=== PATIENT | male | born 1960 | race Caucasian/White ===

== ENCOUNTER 2017-08-04 07:43 | Day surgery (SDC) | payer OTHER ==
--- NOTE | 2017-07-26 10:33 | EKG REPORT ---
SEVERITY:- ABNORMAL ECG - SINUS RHYTHM PROBABLE LEFT ATRIAL ABNORMALITY NONSPECIFIC T ABNORMALITIES, INFERIOR LEADS : Confirmed by: Eva Deng 26-Jul-2017 10:33:06
[2017-08-04] MEDS ORDERED: OXYMETAZOLINE HCL 0.05% NASAL SPRAY 15 ML BOTTLE ONE ×2 (08:14→10:00)
[2017-08-04] MEDS ORDERED: BUPIVACAINE HCL 0.5%-EPI 1:200000 INJ/PF 30 ML VIAL ONE (08:14)
[2017-08-04] MEDS ORDERED: BACITRACIN ZINC OINTMENT 15 GM ONE (08:14)
[2017-08-04] MEDS ORDERED: MIDAZOLAM 2 MG/2 ML INJ ONE (08:28)
[2017-08-04] MEDS ORDERED: FENTANYL CITRATE INJ/PF 100 MCG/2 ML AMPUL ONE ×2 (08:28→12:42)
[2017-08-04] MEDS ORDERED: DEXAMETHASONE SOD PHOSPHATE INJ 4 MG/1 ML VIAL ONE (08:28)
[2017-08-04] MEDS ORDERED: HYDROMORPHONE HCL INJ/PF 2 MG/ML AMPULE ONE (08:29)
[2017-08-04] MEDS ORDERED: ROCURONIUM BROMIDE INJ 50 MG/5 ML VIAL IV ONE (08:29)
[2017-08-04] MEDS ORDERED: ONDANSETRON HCL INJ/PF 4 MG/2 ML SDV ONE (08:29)
[2017-08-04] MEDS ORDERED: PROPOFOL INJ 200 MG/20 ML VIAL IV ONE (08:29)
[2017-08-04] MEDS ORDERED: SUCCINYLCHOLINE CHLORIDE INJ 200 MG/10 ML VIAL ONE (08:29)
[2017-08-04] MEDS ORDERED: CEFAZOLIN 2 GM/D5W RTU 2 GM/50 ML RTUPB IV PRN (08:41)
[2017-08-04] MEDS ORDERED: EPHEDRINE SULFATE INJ 50 MG/1 ML AMPULE ONE (09:22)
[2017-08-04] MEDS: LIDOCAINE 1%/EPINEPHRINE INJ 20 ML VIAL ONE ×2 (09:26→09:56)
[2017-08-04] MEDS ORDERED: MINERAL OIL (STERILE) 10 ML VIAL ONE (10:18)
[2017-08-04] MEDS ORDERED: WATER FOR INJECTION,STERILE 10 ML SDV ONE (10:57)
[2017-08-04] MEDS ORDERED: PROMETHAZINE HCL INJ 25 MG/1 ML VIAL ONE ×2 (12:43→14:19)
--- NOTE | 2017-08-10 15:04 | SURGICARE OPERATIVE REPORT E ---
[facility] NAME: BLAYNE BERNSTEIN DATE OF SURGERY: 08/04/2017 ROOM: PREOPERATIVE DIAGNOSES: 1. CHRONIC RHINOSINUSITIS. 2. NASOSEPTAL DEVIATION, ACQUIRED. 3. CHRONIC NASAL DYSPNEA. 4. BILATERAL INFERIOR TURBINATE HYPERTROPHY. POSTOPERATIVE DIAGNOSES: 1. CHRONIC RHINOSINUSITIS. 2. NASOSEPTAL DEVIATION, ACQUIRED. 3. CHRONIC NASAL DYSPNEA. 4. BILATERAL INFERIOR TURBINATE HYPERTROPHY. OPERATIONS: 1. Right image guidance functional endoscopic sinus surgery with rigid surgical transnasal endoscopy. 2. Right maxillary antrostomy. 3. Right anterior ethmoidectomy. 4. Right frontal sinus balloon sinuplasty. 5. Septoplasty. 6. Bilateral inferior turbinate reduction using a submucous resection technique. SURGEON: MURALI BELTRAN D.O. ANESTHESIA: General endotracheal tube. ANESTHESIA STAFF: NAM Quiroz. ESTIMATED BLOOD LOSS: 50 mL. FLUIDS: 1200 mL. COMPLICATIONS: None. TISSUE REMOVED OR ALTERED: DRAINS: None. COUNTS: Sponge count verified. MATERIALS FORWARDED AND SPECIMENS: None. FINDINGS: 1. Left nasoseptal deviation involving bone and cartilage. 2. Bilateral inferior turbinate hypertrophy. 3. Middle turbinate hypertrophy, right greater than left, along with polypoid mucosal changes noted. No sinonasal discharge noted. 4. External nasal deformities with a bulbous nasal tip, complex. INDICATIONS: This is a 57-year-old white male patient who has been seen, evaluated and followed in the [facility] office. The patient has been referred for and he complained of a history of chronic rhinosinusitis symptoms that he suffers from throughout the course of each year x15 years. The patient also reports a history of nasal trauma and chronic nasal dyspnea over the years. The patient underwent clinic evaluation to include flexible endoscopy and CT sinus imaging. Right-sided sinus disease was noted, and the patient's sinus complaints were confined to the right side over the years. The patient has desired over the years to undergo nasal and sinus surgery to gain functional improvement and to move beyond his sinus symptoms. After extensive discussion with the patient, recommendation and plan was for a right-sided functional endoscopic sinus surgery to address the maxillary, ethmoid and frontal sinus distributions, septoplasty and bilateral turbinate reduction. The patient voiced an understanding of the described surgical plan, agreed to proceed, and consent was obtained. PROCEDURE: The patient was taken to the main operating room and placed on the operating room table in the supine position. Appropriate monitors were placed. Using mask and IV access, general anesthesia was induced. The patient was then orally intubated without difficulty. The patient was then prepped and positioned for nasal and sinus surgery. The Fusion image guidance sinus surgery system was set up and tested adequate at the beginning of the case. The patient then underwent a nasal examination with injection of local anesthetic with epinephrine to establish a nasal block. The Afrin-soaked neuro patties were placed in each nasal passage. The patient was then prepped and draped in the usual fashion for nasal and sinus surgery. The patient underwent a hemitransfixion incision with elevation of the mesoperichondrial and periosteal flaps without difficulty. The bony cartilaginous junction was identified and divided, and the most deviated portions of septal cartilage and bone were removed. At this point, the turbinate reduction was addressed in the following manner: The turbinate bipolar wand was used to make 2 passes in each inferior turbinate. The Timothy scissors were used to enter the anterior aspect of each inferior turbinate, followed by elevation of the tissue in a submucosal plane with a Hollister elevator. The turbinate microdebrider system at a setting of 1500 RPM was used to perform submucous resection bilateral. A Vicki was used to remove approximately 1 cm of anterior turbinate bone. Next, the Hollister elevator was used to outfracture each inferior turbinate. At this point, the sinus surgery portion of the case was addressed in the following manner: The anterior aspect of the right middle turbinate was resected. The uncinate process was identified and mobilized, and resected with sharp cutting instruments and the microdebrider. With use of this instrumentation, the right maxillary antrostomy and anterior ethmoidectomy were performed without difficulty. Findings were all as noted above. The balloon image guidance frontal sinus system was introduced, and the frontal sinus recess was accessed. The balloon was slowly inflated and held in position, and then withdrawn. At this point, the nose was thoroughly irrigated and suctioned. There was adequate hemostasis noted. Next, Stammberger sinus foam was injected into the right nasal passage. Once complete, the previously removed septal cartilage was placed back between the mucosal flaps and banked. There was a greater than 2 x 2 cm cartilaginous L-strut that had been preserved. The incision was then reapproximated with 5-0 chromic suture. One Rangel silicone nasal splint with Bacitracin ointment was inserted per nasal passage. These were secured at the caudal aspect with 4-0 Prolene suture. At this point, the patient's nose was cleaned and dried. He was then returned to the Anesthesia staff and was allowed to emerge from general anesthesia. The patient was extubated in the main operating room without difficulty. The [employer] image guidance system functioned appropriately throughout the duration of the case. There were no complications. AGE: 57Y DICTATING PHYSICIAN: MURALI BELTRAN D.O. BGEDIT [id number] PHY#: [id number] ID: [id number] JOB#: [id number] ACCT: [id number] cc:MURALI BELTRAN D.O. >
== END 2017-08-04 13:30 | disposition home or self-care (01) ==
LOC: SC 07:43
PROVIDERS: ATTEND Otolaryngology
PROC: 099Q4ZZ Drainage of Right Maxillary Sinus, Percutaneous Endoscopic Approach (ICD-10-PCS; 2017-08-04)
PROC: 09TU4ZZ Resection of Right Ethmoid Sinus, Percutaneous Endoscopic Approach (ICD-10-PCS; 2017-08-04)
PROC: 09TL8ZZ Resection of Nasal Turbinate, Via Natural or Artificial Opening Endoscopic (ICD-10-PCS; principal; 2017-08-04 08:30)
DX: J32.9 Chronic sinusitis, unspecified (principal); J34.2 Deviated nasal septum; J34.3 Hypertrophy of nasal turbinates; G47.33 Obstructive sleep apnea (adult) (pediatric); R06.09 Other forms of dyspnea; I10 Essential (primary) hypertension; J45.909 Unspecified asthma, uncomplicated
CPT/HCPCS: 30140; 31256; 31254; 30520; 31296; 93005; 93010; J2250; J3490 ×6; J1100; J3010; J1170; J2550; J0330; J2405; J2704; J0690; 170